=== PATIENT | male | born 1980 | race Caucasian/White ===

== ENCOUNTER 2020-09-09 10:30 | Emergency (ER) | payer OTHER, SELFPAY ==
--- NOTE | ~2020-09-09 | US_ITS ---
EXAMINATION: US venous doppler LE RT DATE: 09/09/2020 11:55 INDICATION: Right lower limb pain TECHNIQUE: Grayscale ultrasound images without and with compression and Doppler ultrasound images of the right lower extremity veins were obtained. COMPARISON: None. FINDINGS: The visualized portions of right common femoral vein, profunda (deep) femoral vein, femoral vein, pop liteal vein, peroneal trunk, posterior tibial veins, peroneal veins, gastrocnemius vein and greater s aphenous vein outflow are patent. IMPRESSION: 1. No deep venous thrombosis in the right lower limb. Reviewed, dictated and finalized at location A.
--- NOTE | ~2020-09-09 | XR_ITS ---
EXAMINATION: XR ankle RT min 3V DATE: 09/09/2020 10:47 INDICATION: Right ankle swelling and bruising post injury TECHNIQUE: Anteroposterior, oblique, mortise, and lateral views of the right ankle were obtained. COMPARISON: None. FINDINGS: Alignment is normal. No fracture. Joint spaces are well maintained. No ankle joint effusion. Promin ent soft tissue swelling about the lateral malleolus. IMPRESSION: 1. No osseous abnormality. Reviewed, dictated and finalized at location A. IMPRESSION: 1. No osseous abnormality.
[2020-09-09 10:33] VITALS: BP 129/80; PULSE 83; RESP 18; TEMP 36.4; O2SAT 100
--- NOTE | 2020-09-09 12:32 | ED.GENADULT ---
HPI - General Adult General Chief complaint: Extremity Injury, Lower Stated complaint: right ankle injury Time Seen by Provider: 09/09/20 10:38 Source: patient, family and RN notes reviewed Mode of arrival: ambulatory Limitations: no limitations History of Present Illness HPI narrative: Patient a 40-year-old male who presents to emergency department for evaluation of right leg pain and swelling injured the leg a week ago has had negative foot and ankle x-rays has been resting and elevating it but now the bruising is extending up and down into the foot patient presents with concern for blood clot on arrival is in no distress has no other complaints denies new injury or trauma Related Data Home Medications Medication Instructions Recorded Confirmed No Home Medications 09/09/20 09/09/20 Allergies Allergy/AdvReac Type Severity Reaction Status Date / Time No Known Drug Allergies Allergy Unknown Unknown Verified 09/09/20 10:42 Review of Systems Review of Systems: All systems reviewed & are unremarkable except as noted in HPI and below PMFSH Social History Social History (Updated 09/09/20 @ 12:33 by Kirk Avalos PA-C) Smoking status: Never smoker Exam Narrative: Exam Narrative: GENERAL: Well-appearing, well-nourished, and in no acute distress. HEAD: Normocephalic, atraumatic. EYES: PERRLA and EOMI. ENT: Nares clear, no rhinorrhea or epistaxis. Mucous membranes moist. CHEST: Clear to auscultation. No respiratory distress. No wheezes rales or rhonchi HEART: Regular rate and rhythm. No murmur heard. Normal peripheral pulses. EXTREMITIES: Patient with bruising around the ankle down into the forefoot and up into the [place] tenderness of the ankle SKIN: Warm, dry, no rash. NEURO: No focal deficits. Alert and oriented x3. Neurovascularly intact PSYCH: Normal mood and affect. Course Course Emergency Course: Patient evaluated no concerning findings on imaging patient will be discharged home with orthopedic follow-up given prescription for pneumatic boot likely spreading of the bruising about the ankle and into the [place] and foot from the ligament injury most likely Vital Signs Vital signs: Vital Signs Temperature 97.6 F 09/09/20 10:33 Pulse Rate 83 09/09/20 10:33 Respiratory Rate 18 09/09/20 10:33 Blood Pressure 129/80 09/09/20 10:33 Pulse Oximetry 100 09/09/20 10:33 Temperature 97.6 F 09/09/20 10:33 Pulse Rate 83 09/09/20 10:33 Respiratory Rate 18 09/09/20 10:33 Blood Pressure 129/80 09/09/20 10:33 Pulse Oximetry 100 09/09/20 10:33 Medical Decision Making MDM Narrative Medical decision making narrative: Patients injury or pain is consistent with musculoskeletal etiology. No signs of neurological or vascular compromise on exam. Compartments and tisues are soft without signs of compartment syndrome. Pain is felt appropriate for further evaluation on an outpatient basis. Vital Signs Vital Signs: Vital Signs Temperature 97.6 F 09/09/20 10:33 Pulse Rate 83 09/09/20 10:33 Respiratory Rate 18 09/09/20 10:33 Blood Pressure 129/80 09/09/20 10:33 Pulse Oximetry 100 09/09/20 10:33 Temperature 97.6 F 09/09/20 10:33 Pulse Rate 83 09/09/20 10:33 Respiratory Rate 18 09/09/20 10:33 Blood Pressure 129/80 09/09/20 10:33 Pulse Oximetry 100 09/09/20 10:33 Imaging Data Radiologist's impression: ITS Impressions Ankle X-Ray 09/09/20 11:27 IMPRESSION: 1. No osseous abnormality. Venous Doppler Study 09/09/20 12:05 IMPRESSION: 1. No deep venous thrombosis in the right lower limb. Discharge Plan Discharge Clinical Impression: Ankle sprain and strain Patient Disposition: Home, Self-Care Condition: Stable Instructions: Antibiotic Form, Ankle Sprain (ED) Additional Instructions: Wear brace and use crutches. No weight on the affected leg until able to bear weight without pain. Ice and elevate extremity. Pain
[2020-09-09 12:40] VITALS: BP 126/88; PULSE 80; RESP 20; O2SAT 99
== END 2020-09-09 12:41 | disposition home or self-care (01) ==
PROVIDERS: Emergency Provider Emergency Medicine; PCP Internal Medicine Geriatric Medicine
DX: S93.401A Sprain of unspecified ligament of right ankle, initial encounter (principal); S96.911A Strain of unspecified muscle and tendon at ankle and foot level, right foot, initial encounter; X58.XXXA Exposure to other specified factors, initial encounter
CPT/HCPCS: 73610; 93971; 99284